=== PATIENT | female | born 2000 | race Caucasian/White ===

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

== ENCOUNTER 2020-07-01 09:40 | Emergency (ER) | payer MEDICAID ==
[~2020-07-01] VITALS: Ht 154.9 cm; Wt 47.6 kg
[2020-07-01 09:40] VITALS: BP_SYST 158
[2020-07-01] MEDS ORDERED: ACETAMINOPHEN 325 MG TABLET PO ONE (10:00)
[2020-07-01] MEDS ORDERED: FAMOTIDINE 20 MG TABLET PO ONE (10:00)
[2020-07-01] MEDS ORDERED: MAG-AL HYDROX/SIMETH 30 ML UDC PO ONE (10:00)
[2020-07-01] MEDS ORDERED: ONDANSETRON HCL 4 MG/2 ML VIAL ONE (10:09)
[2020-07-01] MEDS ORDERED: ONDANSETRON HCL 4 MG/2 ML VIAL IVP ONE (10:15)
[2020-07-01 10:18] LABS: BASOPHILS % (AUTO) 0.4 % (0.0-2.0); HEMATOCRIT 40.7 % (36-48); HEMOGLOBIN 13.7 g/dL (12.0-16.0); LYMPHOCYTES # (AUTO) 0.5 K/uL (1.0-5.5); MEAN CORPUSCULAR HEMOGLOBIN 30 pg (27-31); MEAN CORPUSCULAR HGB CONC 34 % (32-36); MEAN CORPUSCULAR VOLUME 88 fL (79.0-98.0); MONOCYTES # (AUTO) 0.3 K/uL (0.0-1.0); MONOCYTES % (AUTO) 3.3 % (1.7-9.3); NEUTROPHILS # (AUTO) 8.2 K/uL (1.8-7.7); NEUTROPHILS % (AUTO) 91.3 % (40.0-70.0); PLATELET COUNT (AUTO) 195 K/uL (130-430); RED BLOOD CELL COUNT(AUTO) 4.64 MIL/uL (4.2-6.2); RED CELL DISTRIBUTION WIDTH 13.4 % (9.0-15.0)
[2020-07-01 10:21] LABS: CALCIUM 9.4 mg/dL (8.4-11.0); CREATININE 1.07 mg/dL (0.55-1.30)
[2020-07-01 10:27] LABS: ALBUMIN 4.6 g/dL (3.4-4.8); TOTAL BILIRUBIN 0.5 mg/dL (0.0-1.0)
[2020-07-01 10:37] LABS: BILIRUBIN,URINE NEGATIVE (NEGATIVE); CLARITY/URINE CLEAR (CLEAR); COLOR,URINE YELLOW (YELLOW); GLUCOSE,URINE NEGATIVE (NEGATIVE); KETONES,URINE TRACE (NEGATIVE); LEUKOCYTE ESTERASE ,URINE NEGATIVE (NEGATIVE); NITRITE, URINE NEGATIVE (NEGATIVE); PROTEIN URINE NEGATIVE (NEGATIVE); UROBILINOGEN,URINE 0.2 (0.2-1.0)
[2020-07-01 10:38] LABS: BLOOD, URINE TRACE (NEGATIVE)
[2020-07-01 11:04] LABS: BACTERIA,URINE FEW /HPF (None Seen); WBC,URINE 0-3 /HPF (0-3)
[2020-07-01] MEDS ORDERED: ONDA4TAB5 PO (11:21)
[2020-07-01 11:37] VITALS: BP_SYST 158
== END 2020-07-01 11:25 | disposition home or self-care (01) ==
LOC: SED 09:40
DX: R10.12 Left upper quadrant pain (principal); R11.10 Vomiting, unspecified; R19.7 Diarrhea, unspecified; E11.9 Type 2 diabetes mellitus without complications; Z20.822 Contact with and (suspected) exposure to COVID-19
CPT/HCPCS: 80053; 81000; 36415; 81025; 83690; 85025; 96374; 99284; J2405; U0003

== ENCOUNTER 2021-12-08 20:28 | Emergency (ER) | payer MEDICAID ==
[~2021-12-08 20:28] MED LIST: ONDA4TAB5 PO
--- NOTE | 2021-12-08 20:35 | NUR ---
Attempted to triage pt. Called pt's name, not in tent or ER waiting room.
--- NOTE | 2021-12-08 21:00 | NUR ---
Attempted to triage pt. Called pt's name, not in tent or ER waiting room.
--- NOTE | 2021-12-08 22:39 | NUR ---
Pt left without being triaged.
== END 2021-12-08 22:39 | disposition left against medical advice (07) ==
LOC: SED 20:28
DX: G43.909 Migraine, unspecified, not intractable, without status migrainosus (principal); J02.9 Acute pharyngitis, unspecified; Z53.21 Procedure and treatment not carried out due to patient leaving prior to being seen by health care provider